=== PATIENT | female | born 2000 | race African-American/Black ===

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

== ENCOUNTER 2020-11-20 16:12 | Emergency (ER) | payer SELFPAY ==
[~2020-11-20] VITALS: Ht 160 cm; Wt 68.0 kg
[2020-11-20 16:45] VITALS: BP 107/63
--- NOTE | 2020-11-20 17:01 | PHYS DOC ---
Past Medical History Past Medical History: No Pertinent History Past Surgical History: No Surgical History Smoking Status: Never Smoker Alcohol Use: None Drug Use: None General Adult EDM: Chief Complaint: ANKLE PROBLEM HPI: HPI: 20-year-old female presenting with left ankle pain. She was walking down a few stairs when she tripped and injured her left ankle. She has a sharp shooting pain in the area anterior portion of her ankle and the top part of her foot. She has had some swelling. The pain is nonradiating. She denies any numbness weakness or tingling. She denies any other injuries. The pain is moderate. Review of systems negative for knee pain hip pain head injury or loss of consciousness. All other review of systems negative. ED course: 20-year-old female presenting with left ankle and foot pain after injuring it tripping down a few stairs. X-rays obtained. X-ray shows an avulsion of the talus. I spoke with our orthopedic surgeon Dr. Escobar who recommends splinting and outpatient referral. Patient is placed in a posterior leg splint given crutches and referred to orthopedic surgery within the next 3 to 5 days. After splint placement the patient's foot had a palpable pulse with 2-second cap refill. Normal motor and sensory function of the foot. Heart Score: Risk Factors: Risk Factors: DM, Current or recent (<one month) smoker, HTN, HLP, family history of CAD, obesity. Risk Scores: Score 0 - 3: 2.5% MACE over next 6 weeks - Discharge Home Score 4 - 6: 20.3% MACE over next 6 weeks - Admit for Clinical Observation Score 7 - 10: 72.7% MACE over next 6 weeks - Early Invasive Strategies Allergies: Allergies: Allergies Coded Allergies Type Severity Reaction Last Updated Verified No Known Drug Allergies 06/03/17 No Physical Exam: PE: Constitutional: Well developed, well nourished, no acute distress, non-toxic appearance. [] HENT: Normocephalic, atraumatic, bilateral external ears normal, oropharynx moist, no oral exudates, nose normal. [] Eyes: PERRLA, EOMI, conjunctiva normal, no discharge. [] Neck: Normal range of motion, no tenderness, supple, no stridor. [] Cardiovascular:Heart rate regular rhythm, no murmur [] Lungs & Thorax: Bilateral breath sounds clear to auscultation [] Abdomen: Bowel sounds normal, soft, no tenderness, no masses, no pulsatile masses. [] Skin: Warm, dry, no erythema, no rash. [] Back: No tenderness, no CVA tenderness. [] Extremities: The patient's left lower extremity has palpable pulse with 2-second cap refill. Tenderness along the anterior portion of the ankle. Nontender lateral or medial malleolus. Nontender base of the fifth metatarsal. Normal motor and sensory function of the foot. Nontender knee. Nontender calf/tib-fib region. Neurologic: Alert and oriented X 3, normal motor function, normal sensory function, no focal deficits noted. [] Psychologic: Affect normal, judgement normal, mood normal. [] EKG: EKG: [] Radiology/Procedures: Radiology/Procedures: [] Course & Med Decision Making: Course & Med Decision Making Pertinent Labs and Imaging studies reviewed. (See chart for details) [] Dragon Disclaimer: Dragon Disclaimer: This electronic medical record was generated, in whole or in part, using a voice recognition dictation system. Departure Departure Impression: Primary Impression: Ankle injury Disposition: 01 DC HOME SELF CARE/HOMELESS Condition: STABLE Referrals: NO PCP (PCP) JODI PINZON MD 3-5 days Patient Instructions: Foot Fracture Additional Instructions: Follow-up with Dr. Pinzon [facility] in 3-5 days. Return to the emergency department if you have any new or concerning findings. FILOMENA ROSE MD Nov 20, 2020 17:00
--- NOTE | 2020-11-20 17:32 | RAD ---
Study: 1. XR EXAM OF ANKLE_LEFT 3V 2. XR FOOT_LEFT 3 VIEWS Indication: Pain. Comparison: None. Findings: Ankle: The ankle mortise is symmetric and the talar dome intact. No acute fracture of the tibia or fibula. Foot: Avulsion fracture fragment at the dorsal aspect of the talar head with the fragment measuring approxi mately 7 mm proximal to distal and displaced by 1.5 mm. No additional fracture seen throughout the fo ot. Maintained joint spaces. Impression: Left ankle/foot: Avulsion fracture off the dorsum of the talar head. No additional fracture seen throughout the foot o r at the ankle. Electronically signed by: LISA GALLAGHER MD (11/20/2020 5:28 PM) [id number]
== END 2020-11-20 18:43 | disposition home or self-care (01) ==
LOC: ER 16:12
DX: S99.812A Other specified injuries of left ankle, initial encounter (principal); R60.0 Localized edema; W01.0XXA Fall on same level from slipping, tripping and stumbling without subsequent striking against object, initial encounter; Y93.89 Activity, other specified; Y92.89 Other specified places as the place of occurrence of the external cause; Y99.8 Other external cause status
CPT/HCPCS: 73610; 73630; 99284

== ENCOUNTER 2021-01-05 11:13 | Emergency (ER) | payer SELFPAY ==
[~2021-01-05] VITALS: Ht 160 cm; Wt 68.0 kg
[2021-01-05 11:43] VITALS: BP 129/58
--- NOTE | 2021-01-05 12:07 | ED.ADGEN ---
Past Medical History Past Medical History: No Pertinent History Past Surgical History: No Surgical History Smoking Status: Never Smoker Alcohol Use: None Drug Use: None General Adult EDM: Chief Complaint: OTHER COMPLAINTS HPI: HPI: Patient is a 20 year old female who presents to the emergency department for a splint check of her left foot. Patient was seen here on November 202020 and placed in a splint after being diagnosed with an avulsion fracture of her left talus. Patient reports she has been using crutches and wearing the splint provided but she never followed up like she was instructed to with orthopedics. She reports that she is able to bear weight on the affected extremity at this time. She denies any decreased range of motion, numbness, tingling, or weakness of the affected area. She currently denies any pain. Patient states she would like a new splint to be placed in the ER. Review of Systems: Review of Systems: Complete ROS is negative unless otherwise noted in HPI. Allergies: Allergies: Allergies Coded Allergies Type Severity Reaction Last Updated Verified No Known Drug Allergies 06/03/17 No Physical Exam: PE: See Above Constitutional: Well developed, well nourished, no acute distress, non-toxic appearance. [] HENT: Normocephalic, atraumatic, bilateral external ears normal, nose normal. [] Eyes: PERRLA, EOMI, conjunctiva normal, no discharge. [] Neck: Normal range of motion, no stridor. [] Cardiovascular:Heart rate regular rhythm Lungs & Thorax: Respirations even and unlabored, no retractions, no respiratory distress Skin: Warm, dry, no erythema, no rash. [] Extremities: Lower left extremity: No cyanosis, ROM intact, no edema, patient is able to weight-bear following splint removal Neurologic: Alert and oriented X 3, no focal deficits noted. [] Psychologic: Affect normal, judgement normal, mood normal. [] Current Patient Data: Vital Signs: Vital Signs Date Time Temp Pulse Resp B/P (MAP) Pulse Ox O2 Delivery O2 Flow Rate FiO2 01/05/21 11:43 98.9 90 16 129/58 (81) 98 Room Air 98.9 EKG: EKG: [] Heart Score: Risk Factors: Risk Factors: DM, Current or recent (<one month) smoker, HTN, HLP, family history of CAD, obesity. Risk Scores: Score 0 - 3: 2.5% MACE over next 6 weeks - Discharge Home Score 4 - 6: 20.3% MACE over next 6 weeks - Admit for Clinical Observation Score 7 - 10: 72.7% MACE over next 6 weeks - Early Invasive Strategies Radiology/Procedures: Radiology/Procedures: [] Course & Med Decision Making: Course & Med Decision Making Pertinent Labs and Imaging studies reviewed. (See chart for details) [id number]-[id number] spoke with Dr. Pinzon about the patient and her previous x-ray results, per Dr. Pinzon there no need to replace posterior splint. Patient may be placed in an ankle air splint. Follow-up with orthopedics as needed. [] Dragon Disclaimer: Dragon Disclaimer: This electronic medical record was generated, in whole or in part, using a voice recognition dictation system. Departure Departure Impression: Primary Impression: Foot pain, left Disposition: 01 DC HOME SELF CARE/HOMELESS Condition: STABLE Referrals: JODI PINZON MD Patient Instructions: Foot Fracture-Brief Additional Instructions: Wear the air splint that was applied as needed for comfort. Take tylenol as needed for pain. Activity as tolerated. Follow up with Dr. Pinzon for further e valuation. Return to the ER if symptoms worsen. CINDY CARTWRIGHT APRN Jan 05, 2021 12:07
== END 2021-01-05 13:01 | disposition home or self-care (01) ==
LOC: ER 11:13
DX: M79.672 Pain in left foot (principal)
CPT/HCPCS: 99282; L4350